=== PATIENT | male | born 2000 | race Caucasian/White ===

== ENCOUNTER 2023-05-14 09:59 | Outpatient (REF) | payer MEDICAID, SELFPAY ==
--- NOTE | ~2023-05-14 | XR_ITS ---
EXAMINATION: XR CHEST CLINICAL INFORMATION: Cough COMPARISON: None available. TECHNIQUE: 2 views of the chest were obtained. FINDINGS: Upper normal-size cardiac silhouette. Hilar and mediastinal contours are normal. Question left upper lobe linear increased markings or scarring and adjacent pleural thickening. This is in between the left anterior second and third ribs. The lungs are otherwise clear. No pleural effusion or pneumothorax. Normal bony structures. Distended bowel below the diaphragm. XR/XR chest 2V IMPRESSION: Question scarring and adjacent pleural thickening in the left upper lung. Upper normal-size cardiac silhouette. Distended bowel below the diaphragm.
== END 2023-05-14 10:00 | disposition home or self-care (01) ==
LOC: HO.HHCX 09:59
PROVIDERS: Visit Provider Internal Medicine
DX: R05.9 Cough, unspecified (principal)
CPT/HCPCS: 71046

== ENCOUNTER 2023-07-09 15:40 | Outpatient (REF) | payer MEDICAID, SELFPAY ==
--- NOTE | ~2023-07-09 | CT_ITS ---
EXAMINATION: CT CHEST WITH CONTRAST CLINICAL INFORMATION: Pleural plaque without asbestosis COMPARISON: 05/14/2023 chest radiograph TECHNIQUE: Multidetector volumetric CT imaging of the chest was obtained after the administration of 65 mL of Omnipaque 350 intravenous contrast without immediate adverse reactions. Axial MIP volume rendering provided. Sagittal and coronal reformatted images were obtained. This CT examination was performed using dose optimization techniques as appropriate, variously including the following: *Automated exposure control *Adjustment of mA and/or kV according to patient size (this includes techniques or standardized protocols for targeted exams where dose is matched to indication/reason for exam; i.e. extremities or head) *Use of iterative reconstruction technique DLP: 1:15 mGy-cm FINDINGS: FINANCIAL AID ADVISOR: Minor increased markings left upper lateral hemithorax. Distended stomach. LUNGS AND PLEURA: Trachea and bronchi are patent. No identifiable lung nodules. There is mild asymmetric pleural thickening lateral aspect of the left upper lobe in continuity with the left major fissure. Curvilinear increased markings extending from the pleural thickening into the left upper lobe parenchyma seen on axial 4:16, sagittal 9:24, coronal 8:49. No suspicious associated mass lesions. MEDIASTINUM: Unremarkable thyroid. Homogeneous anterior mediastinal soft tissue density likely thymus in this 22-year-old patient. No pathologic lymphadenopathy. Small hiatal hernia. HEART AND GREAT VESSELS: Heart size within normal limits. No pericardial. Degree of coronary calcifications: Absent. Nonaneurysmal aorta with patency of the branch vessels. Nondilated pulmonary arteries. AXILLA: No lymphadenopathy. UPPER ABDOMEN: Gastric distention with large air-fluid level. Spleen is enlarged 15.1 cm. OSSEOUS STRUCTURES: Unremarkable. CT/CT chest w IV con IMPRESSION: Nonspecific focal mild left upper lobe lateral pleural thickening with question associated left upper lobe parenchymal scarring. Findings possibly related to previous insult. Distended air and debris filled stomach and small hiatal hernia. Splenomegaly. Fleischner guidelines were followed.
[2023-07-09] MEDS: iohexoL 350 MG/ML 100 ML INFUS..BTL IV (16:03)
== END 2023-07-09 15:41 | disposition home or self-care (01) ==
LOC: HO.CT 15:40
PROVIDERS: PCP Nurse Practitioner Primary Care; Visit Provider Nurse Practitioner Primary Care
DX: J92.9 Pleural plaque without asbestos (principal)
CPT/HCPCS: 71260; Q9967

== ENCOUNTER 2023-08-16 08:44 | Outpatient (REF) | payer MEDICAID, SELFPAY | END 2023-08-16 08:45 | disposition home or self-care (01) | LOC: HO.HHCL 08:44 | PROVIDERS: Visit Provider Nurse Practitioner Primary Care | DX: E55.9 Vitamin D deficiency, unspecified (principal) | CPT/HCPCS: 36415; 82306 ==

== ENCOUNTER 2024-05-12 10:01 | Outpatient (REF) | payer MEDICAID, SELFPAY ==
--- NOTE | ~2024-05-12 | XR_ITS ---
EXAMINATION: XR RIGHT FOOT XR RIGHT ANKLE CLINICAL INFORMATION: Chronic pain of right ankle, old injury 10 years ago, continues to have pain. Dropped 12 pound weight on foot 2 weeks ago. COMPARISON: None available. TECHNIQUE: 4 views of the right foot. 4 views of the right ankle. FINDINGS: RIGHT ANKLE: The bone mineralization is normal. Ankle mortise is preserved. Alignment maintained. RIGHT FOOT: Bone mineralization is normal. The joint spaces and alignment are maintained. No acute displaced fracture is appreciated. Minimal spurring along the dorsal aspect of the calcaneus. Subtle lucency/demineralization along the posterior plantar aspect of the calcaneus. XR/XR ankle RT min 3V IMPRESSION: 1. Minimal spurring along the dorsal aspect of the calcaneus. Subtle lucency/demineralization along the posterior plantar aspect of the calcaneus. 2. No acute displaced fracture. Recommend follow-up imaging in 10-14 days if fracture is suspected.
--- NOTE | ~2024-05-12 | XR_ITS ---
EXAMINATION: XR RIGHT FOOT XR RIGHT ANKLE CLINICAL INFORMATION: Chronic pain of right ankle, old injury 10 years ago, continues to have pain. Dropped 12 pound weight on foot 2 weeks ago. COMPARISON: None available. TECHNIQUE: 4 views of the right foot. 4 views of the right ankle. FINDINGS: RIGHT ANKLE: The bone mineralization is normal. Ankle mortise is preserved. Alignment maintained. RIGHT FOOT: Bone mineralization is normal. The joint spaces and alignment are maintained. No acute displaced fracture is appreciated. Minimal spurring along the dorsal aspect of the calcaneus. Subtle lucency/demineralization along the posterior plantar aspect of the calcaneus. XR/XR foot RT min 3V IMPRESSION: 1. Minimal spurring along the dorsal aspect of the calcaneus. Subtle lucency/demineralization along the posterior plantar aspect of the calcaneus. 2. No acute displaced fracture. Recommend follow-up imaging in 10-14 days if fracture is suspected.
== END 2024-05-12 10:02 | disposition home or self-care (01) ==
LOC: HO.HHCX 10:01
PROVIDERS: Visit Provider Nurse Practitioner Primary Care
DX: M79.671 Pain in right foot (principal); M25.571 Pain in right ankle and joints of right foot; G89.29 Other chronic pain
CPT/HCPCS: 73610; 73630

== ENCOUNTER 2024-10-02 11:34 | Outpatient (REF) | payer MEDICAID, SELFPAY ==
[2024-10-02 18:14] LABS: CT PCR NOT DETECTED (Not Detect.); NG PCR NOT DETECTED (Not Detect.)
[2024-10-03 03:33] LABS: Syphilis Screen Nonreactive (Nonreactive)
[2024-10-03 04:18] LABS: HIV AB/AG Nonreactive (Nonreactive); HIV Num 1 0.05 S/CO (0.00-0.99); ~HepC Num1 0.12 S/CO (0.00-0.79); ~Hepatitis C Antibody Nonreactive (Nonreactive)
== END 2024-10-02 11:35 | disposition home or self-care (01) ==
LOC: HO.HHCL 11:34
PROVIDERS: Visit Provider Family Medicine
DX: Z20.2 Contact with and (suspected) exposure to infections with a predominantly sexual mode of transmission (principal)
CPT/HCPCS: 86780; 86803; 87389; 87491; 87591

== ENCOUNTER 2024-11-13 17:24 | Outpatient (REF) | payer MEDICAID, SELFPAY ==
[2024-11-14 06:41] LABS: CT PCR NOT DETECTED (Not Detect.); NG PCR NOT DETECTED (Not Detect.)
== END 2024-11-13 17:25 | disposition home or self-care (01) ==
LOC: HO.HHCLNP 17:24
PROVIDERS: Visit Provider Family Medicine
DX: Z11.3 Encounter for screening for infections with a predominantly sexual mode of transmission (principal); R21 Rash and other nonspecific skin eruption
CPT/HCPCS: 87255; 87491; 87591